=== PATIENT | female | born 1990 | race Caucasian/White ===

== ENCOUNTER 2018-11-09 11:33 | Emergency (ER) | payer OTHER ==
[~2018-11-09] VITALS: Ht 170.2 cm; Wt 101.6 kg
[~2018-11-09 11:33] MED LIST: AMOXICILLIN875 MG PO; NORCO 5-325 TA1 EACH PO; PRENATAL 19 CH1 EAC1 PO; TYLENOL325 MG PO
[2018-11-09] MEDS ORDERED: PROPRANOLOL HCL40 MG PO (12:03)
[2018-11-09] MEDS ORDERED: RIZATRIPTAN5 MG PO (12:03)
[2018-11-09] MEDS ORDERED: INDOMETHACIN50 MG PO (13:47)
[2018-11-09] MEDS ORDERED: NORCO 5-325 TA1 EACH PO (13:47)
[2018-11-09] MEDS ORDERED: FLOMAX0.4 MG PO (13:47)
== END 2018-11-09 13:54 | disposition home or self-care (01) ==
LOC: ED 11:33
DX: R30.0 Dysuria (principal); Z87.442 Personal history of urinary calculi; Z88.5 Allergy status to narcotic agent; Z79.899 Other long term (current) drug therapy
CPT/HCPCS: 74176; 80053; 81001; 85025; 96374; 96375; 99284-25; J1885; J2550

== ENCOUNTER 2020-03-01 04:33 | Emergency (ER) | payer OTHER ==
[~2020-03-01] VITALS: Ht 170.2 cm; Wt 101.6 kg
[~2020-03-01 04:33] MED LIST changes: +FLOMAX0.4 MG PO; +INDOMETHACIN50 MG PO; +PROPRANOLOL HCL40 MG PO; +RIZATRIPTAN5 MG PO
--- OUTSIDE RECORDS SUMMARY | 2020-03-01 04:36 | XMS ---
PreManage Notification: BOWEN REGALADO Security Pot Puller Events No recent Security Events currently on file CRITERIA MET - PDMP CARE PROVIDERS JAYCE TOLENTINO Nurse Practitioner: Family Current PHONE: [phone] Neeraj has no Care Guidelines for this patient. E.Stephania VISIT COUNT (12 MO.) [address] [facility] TOTAL 4 NOTE: Visits indicate total known visits. ED/UCC VISIT TRACKING (12 MO.) 03/01/2020 04:33 MARLI Montoya OR TYPE: Emergency COMPLAINT: - ABDOMINAL PAIN 06/02/2019 04:30 [facility] TYPE: Emergency DIAGNOSES: - Flank Pain; - Tubulo-interstitial nephritis, not specified as acute or investigator utility bill complaints - Flank Pain 05/18/2019 13:44 [facility] TYPE: Emergency DIAGNOSES: - Migraine, unspecified, not intractable, without status migrai - Headache (Adult - Recurrent Or Known Dx Migraines) - Migraine - Cough 04/15/2019 21:08 Herb Quiroz [facility] TYPE: Emergency DIAGNOSES: - Headache (Adult - Recurrent Or Known Dx Migraines) - Migraine, unspecified, not intractable, without status migrai - Migraine INPATIENT VISIT TRACKING (12 MO.) No inpatient visits to display in this time frame [email or web address]
== END 2020-03-01 07:10 | disposition home or self-care (01) ==
LOC: ED 04:33
DX: R07.9 Chest pain, unspecified (principal); F41.9 Anxiety disorder, unspecified; F32.9 Major depressive disorder, single episode, unspecified; G43.909 Migraine, unspecified, not intractable, without status migrainosus; F17.200 Nicotine dependence, unspecified, uncomplicated; Z88.0 Allergy status to penicillin; Z88.5 Allergy status to narcotic agent; Z79.899 Other long term (current) drug therapy
CPT/HCPCS: 71045; 76705; 80053; 81001; 83690; 84484; 84703; 85025; 85379; 96374; 99285-25; J1885

== ENCOUNTER 2020-06-27 18:26 | Emergency (ER) | payer OTHER ==
[~2020-06-27] VITALS: Ht 170.2 cm; Wt 101.6 kg
[2020-06-27] MEDS ORDERED: NITROFURANTOIN100 M1 PO (18:41)
== END 2020-06-27 21:06 | disposition home or self-care (01) ==
LOC: ED 18:26
DX: O9A.212 Injury, poisoning and certain other consequences of external causes complicating pregnancy, second trimester (principal); S39.011A Strain of muscle, fascia and tendon of abdomen, initial encounter; O99.342 Other mental disorders complicating pregnancy, second trimester; F41.9 Anxiety disorder, unspecified; F32.9 Major depressive disorder, single episode, unspecified; O99.352 Diseases of the nervous system complicating pregnancy, second trimester; G43.909 Migraine, unspecified, not intractable, without status migrainosus; Z87.891 Personal history of nicotine dependence; Z88.0 Allergy status to penicillin; Z88.5 Allergy status to narcotic agent; Z79.899 Other long term (current) drug therapy; Z3A.14 14 weeks gestation of pregnancy
CPT/HCPCS: 76815; 99284-25

== ENCOUNTER 2020-11-30 08:58 | Observation (INO) | payer OTHER ==
[~2020-11-30] VITALS: Ht 170.2 cm; Wt 120.0 kg
[~2020-11-30 08:58] MED LIST changes: +NITROFURANTOIN100 M1 PO
--- NOTE | 2020-11-30 14:06 | NUR ---
RT COLLECTED COVID 19 SWAB WITH NO COMPLICATIONS. RT USED THE CEPHEID RAPID TEST THROUGH [facility] PER DR REQUEST AT THIS TIME.
--- NOTE | 2020-11-30 21:11 | CONS ---
[facility] [address] [place], [place] [address] Signed DATE OF CONSULTATION: CONSULTING PHYSICIAN: Se Guerrero MD REQUESTING PHYSICIAN: Aric Smith MD PROBLEM: Acute calculous cholecystitis, 37 weeks gestation. HISTORY OF PRESENT ILLNESS: This 30-year-old white woman has had 5 pregnancies in the past, none of which have been complicated in any way. Since (today is Saturday), she has had some right-sided abdominal and right subscapular pain. This has not been associated with protracted nausea or vomiting. She presented to the emergency room June 27, was evaluated by Dr. Horta. She was subsequently seen by Dr. Smith in his office yesterday and considered likely to have acute cholecystitis and underwent gallbladder ultrasound on November 30, 2020 this morning at 9:30, which confirmed mild thickening of the gallbladder wall, a single gallstone, and some adherent cholesterol deposits of the gallbladder. There was no sign of pericholecystic fluid, emphysematous cholecystitis, or other problem. The patient was directly admitted to the [facility] by Dr. Smith and consultations undertaken. The patient is eligible for delivery of the child at any time as it has reached maturity at 37 weeks, adequate enough for safe delivery with induction if necessary. PAST MEDICAL HISTORY: Does include multiple childbirths in the past. She denies prior ongoing severe medical problems other than obesity. LABORATORY DATA: Evaluation this morning include a white count of 9.3 with hematocrit of 32.4, platelets 282,000. Chem profile is normal except for potassium of 3.3, AST 54, normal bilirubin of 0.9, ALT of 73, alkaline phosphatase elevated at 143. Amylase and lipase were normal. REVIEW OF SYSTEMS: She denies any nausea or vomiting. Her pain is mostly in the right lateral abdominal wall and in the right subscapular area. SOCIAL HISTORY: Electronically Signed By: SE GUERRERO MD 11/30/20 2111 PATIENT NAME: BOWEN REGALADO CONSULTATION DATE OF : 86 REPORT #: [id number] PHYSICIAN: SE GUERRERO MD PCP: NO PRIMARY CARE PHYSICIAN REPORT IS CONFIDENTIAL AND NOT TO BE RELEASED WITHOUT AUTHORIZATION [address] [address] Signed She has several children already and her accompanies her currently. She lives in [place]. PHYSICAL EXAMINATION: GENERAL: A pleasant, but obese white woman, who does not look systemically toxic. There is no icterus of the sclera. Trachea is midline. CHEST: Shows normal respiratory excursion. She has no tachypnea. HEART: Regular at approximately 85 beats per minute. A monitor shows normal heart tones. ABDOMEN: Shows an enlargement related to intrauterine gestation midway between xiphoid and umbilicus. She has no focal tenderness on exam. Mild tenderness to deep palpation. There is no obvious ascites. EXTREMITIES: Show no clubbing, cyanosis, or edema. SKIN: Shows multiple tattoos. LABORATORY STUDIES: As described. ASSESSMENT: The patient has acute calculous cholecystitis from a clinical basis and ultrasound does show mild thickening of the gallbladder wall and a single gallstone. There does not appear to be adverse findings of emphysematous cholecystitis or anything of that sort. I have reviewed this situation with Dr. Smith. The patient can be induced for labor and have subsequent cholecystectomy if necessary, though maturation for another week would be preferable if possible. The cholecystitis is yet to be treated medically and I would recommend antibiotic be given. Recommended Ancef 2 g IV q.8 hours; the patient does have allergy to penicillin (chest tightness) and Dr. Smith prefers in her situation clindamycin. 600 mg IV q.8 hours is anticipated on that basis. We will continue to observe the patient. If antibiotic therapy and medical measures are adequate to settle her acute episode, then cholecystectomy could be promptly performed after elective delivery within the next week or 2. If she has progression of her symptoms, worsening or toxicity in any way, then induction of delivery and subsequent cholecystectomy could certainly be performed. We would not recommend concurrent cholecystectomy to her without delivery under the circumstances as precipitation of labor would be extremely probable. Se Guerrero MD Electronically Signed By: SE GUERRERO MD 11/30/202110 PATIENT NAME: BOWEN REGALADO CONSULTATION DATE OF : 86 REPORT #: [id number] PHYSICIAN: SE GUERRERO MD PCP: NO PRIMARY CARE PHYSICIAN REPORT IS CONFIDENTIAL AND NOT TO BE RELEASED WITHOUT AUTHORIZATION [facility] [address] [place] [id number] Signed /[facility] /[id number] cc: Aric Smith MD Copies: ARIC SMITH MD ~ Electronically Signed By: SE GUERRERO MD 11/30/20 2111 PATIENT NAME: BOWEN REGALADO CONSULTATION DATE OF : 86 REPORT #: [id number] PHYSICIAN: SE GUERRERO MD PCP: NO PRIMARY CARE PHYSICIAN REPORT IS CONFIDENTIAL AND NOT TO BE RELEASED WITHOUT AUTHORIZATION
--- NOTE | 2020-12-01 15:10 | NUR ---
PT AMBULATES INTO ROOM [address] [facility] WITH SPOUSE AND FB NURSE AT HER SIDE. PT IS ALERT AND ORIENTED X4, DENIES PAIN, NAUSEA, AND SOB. PT IS WELL ABLE TO INTO BED WITHOUT ASSISTANCE. BOTH PT AND HER SPOUSE ARE COOPERATIVE AND POLITE. ADDITIONAL BEDSIDE REPORT GIVEN BY MARTHA FB RN. PT SETTELED INTO BED, SCD'S IN PLACE.
--- NOTE | 2020-12-01 15:24 | NUR ---
ALL PT VITALS ARE WNL AT THIS TIME. PT C/O SLIGHT PAIN/DISCOMFORT AT IV SITE DURING POTASSIUM INFUSION. RATE OF POTASSIUM SLOWED FROM 131 ML/HR TO 100 ML/HR. WARM PACK APPLIED TO TENDER AREA BY IV SITE.
--- NOTE | 2020-12-01 16:20 | NUR ---
PT UP AND AMBLUATES EASILY TO THE BATHROOM TO VOID. THEN BACK TO BED INDEPENDENTLY. PT DENIES PAIN, NAUSEA, AND SOB AT THIS TIME.
--- NOTE | 2020-12-01 17:25 | NUR ---
NOHEMY KRAMER WENT INTO PT ROOM TO OBTAIN PT DINNER ORDER.
--- NOTE | 2020-12-01 19:41 | NUR ---
SHIFT REPORT RECEIVED FROM CHRISTINE BORREGO. ASSESSMENT COMPLETED AT THIS TIME. PT FINISHED WITH DINNER AND HAS BEEN UP TO BATHROOM TO VOID. SHE DENIES PAIN AND NAUSEA AT THIS TIME. IV SITE INTACT, INFUSING WNL. PT ON TELE #4 DURING POTASSIUM IV INFUSION, SINUS RHYTHM. GENERALIZED EDEMA TO BLE. REMAINDER OF ASSESSMENT IS BENIGN. PT DENIES NEEDS AT THIS TIME, IS AT BEDSIDE. CALL LIGHT WITHIN REACH. PLAN OF CARE DISCUSSED, QUESTIONS ANSWERED.
--- NOTE | 2020-12-01 20:48 | NUR ---
PT CALLED DUE TO IV PUMP ALARMING. NEW BAG OF IV FLUIDS STARTED. PT DENIES COMPLAINTS OR REQUESTS.
--- NOTE | 2020-12-01 21:42 | NUR ---
FBC RN, OLIVER IN ROOM FOR NST AT THIS TIME.
--- NOTE | 2020-12-01 22:31 | NUR ---
IN TO START ANTIBIOTIC INFUSION, PT ALSO REPORTS NAUSEA. PRN PHENERGAN GIVEN AT THIS TIME. PT DENIES FURTHER REQUESTS OR COMPLAINTS.
--- NOTE | 2020-12-01 23:40 | NUR ---
PT CALLED TO REPORT ITCHING TO ARMS AND LEGS. NO RASH NOTED AT THIS TIME. DR. RAHMAN CALLED AND ORDER RECEIVED FOR PRN BENADRYL, GIVEN AT THIS TIME.
--- NOTE | 2020-12-02 00:27 | NUR ---
LABORATORY SCIENTIST IN TO DRAW BLOOD FOR MIDNIGHT LABS. ASSESSMENT COMPLETED AND UNCHANGED. VITAL SIGNS STABLE. PT REPORTS NAUSEA HAS RESOLVED SINCE PRN PHENERGAN AND THAT HER ITCHING IS BETTER SINCE RECEIVING BENADRYL. PT DENIES COMPLAINTS OR REQUESTS. CALL LIGHT WITHIN REACH.
--- NOTE | 2020-12-02 03:51 | NUR ---
PT APPEARS TO BE SLEEPING AT THIS TIME, NO APPARENT DISTRESS. RESPIRATIONS EVEN AND UNLABORED. HR:88 PER TELE #4.
--- NOTE | 2020-12-02 05:48 | NUR ---
IV PUMP ALARMING, NEW BAG OF IV FLUIDS AND SCHEDULED ANTIBIOTIC INFUSION STARTED. ASSESSMENT COMPLETED. PT REPORTS NAUSEA, PRN REGLAN GIVEN. PT CURRENTLY SLEEPING ON COUCH, STATED THAT SHE COULDN'T GET COMFORTABLE IN THE BED. REMAINDER OF ASSESSMENT UNCHANGED. VITAL SIGNS STABLE. PT DENIES NEEDS, CALL LIGHT WITHIN REACH.
[2020-12-02] MEDS ORDERED: CLEOCIN HCL300 MG PO (07:36)
[2020-12-02] MEDS ORDERED: PROMETHAZINE HC25 M1 PO (07:37)
--- NOTE | 2020-12-02 09:20 | NUR ---
PT LEFT CCU VIA WHEELCHAIR WITH LEBRON KING FOR TRANSPORTER AND WITH SPOUSE AT HER SIDE. PT REMAINS ALERT AND ORIENTED X4, DENIES PAIN, NAUSEA, AND SOB. PT INDEPENDENT WITH SELF CARES.
== END 2020-12-02 09:25 | disposition home or self-care (01) ==
LOC: US 08:58 → FBCO 08:58 → US 09:00 → FBC 10:40 → CCU 12-01 14:58
PROVIDERS: ADMIT General Practice; ATTEND General Practice
DX: O99.613 Diseases of the digestive system complicating pregnancy, third trimester (principal); O21.9 Vomiting of pregnancy, unspecified; Z88.5 Allergy status to narcotic agent; Z88.0 Allergy status to penicillin; Z3A.37 37 weeks gestation of pregnancy; Z20.822 Contact with and (suspected) exposure to COVID-19
CPT/HCPCS: 36415; 76705; 80053; 82150; 82247; 82465; 83615; 83690; 84100; 84478; 84550; 85025; C9803; J2550; J3475; J3480; J7060; J7121; U0003

== ENCOUNTER 2020-12-08 00:03 | Inpatient (IN) | payer OTHER ==
[~2020-12-08] VITALS: Ht 170.2 cm; Wt 110.7 kg
[~2020-12-08 00:03] MED LIST changes: +CLEOCIN HCL300 MG PO; +PROMETHAZINE HC25 M1 PO
--- NOTE | 2020-12-09 11:16 | PR ---
[facility] [address] [place] [address] Signed PP Progress Notes Datetime Report Generated by CPN: 12/09/2020 11:16 SUBJECTIVE: [id number] Pain: Within Normal Limits Nausea/Vomiting: Denies Vital Signs: [id number] Vital Signs: Reviewed; Within Normal Limits Notable Details: PP Hgb/Hct = 9.6/28.7 EXAM: Ongoing Abdomen/Uterus: Normal Lochia: Normal Extremities: Normal IMPRESSION/PLAN/PROCEDURES: [id number] Impression: Normal Progression Plan: Discharge Procedures: None Progress Notes: Doing well, without complaint, would like to go home today. Signing Physician: Juana Rahman MD Copies: ~ *Electronically Signed* 12/09/20 1116 JUANA RAHMAN MD PATIENT NAME: BOWEN REGALADO PROGRESS NOTE DATE OF : 86 PHYSICIAN: JUANA RAHMAN MD RPT #: [id number] REPORT IS CONFIDENTIAL AND NOT TO BE RELEASED WITHOUT AUTHORIZATION
== END 2020-12-09 13:00 | disposition home or self-care (01) | DRG 806 ==
LOC: FBC 00:03
PROVIDERS: ADMIT General Practice; ATTEND General Practice
PROC: 10E0XZZ Delivery of Products of Conception, External Approach (ICD-10-PCS; principal; 2020-12-08)
PROC: 0UQMXZZ Repair Vulva, External Approach (ICD-10-PCS; 2020-12-08)
PROC: 3E0P7VZ Introduction of Hormone into Female Reproductive, Via Natural or Artificial Opening (ICD-10-PCS; 2020-12-08)
DX: O99.62 Diseases of the digestive system complicating childbirth (principal); K81.0 Acute cholecystitis; Z37.0 Single live birth; O62.3 Precipitate labor; O99.324 Drug use complicating childbirth; O99.354 Diseases of the nervous system complicating childbirth; Z3A.38 38 weeks gestation of pregnancy; O99.344 Other mental disorders complicating childbirth; F41.9 Anxiety disorder, unspecified; O99.02 Anemia complicating childbirth; D64.9 Anemia, unspecified; O77.0 Labor and delivery complicated by meconium in amniotic fluid; O71.82 Other specified trauma to perineum and vulva; G43.909 Migraine, unspecified, not intractable, without status migrainosus; F12.90 Cannabis use, unspecified, uncomplicated; O99.334 Smoking (tobacco) complicating childbirth; F17.210 Nicotine dependence, cigarettes, uncomplicated; Z88.0 Allergy status to penicillin; Z88.5 Allergy status to narcotic agent; Z79.899 Other long term (current) drug therapy; Z87.440 Personal history of urinary (tract) infections
CPT/HCPCS: 36415; 85027; A9270; J2590

== ENCOUNTER 2020-12-30 07:30 | Day surgery (SDC) | payer OTHER ==
[~2020-12-30] VITALS: Ht 170.2 cm; Wt 101.3 kg
[~2020-12-30 07:30] MED LIST changes: +PROPRANOLOL HCL20 MG PO
[2020-12-30] MEDS ORDERED: IRON18 MG PO (07:48)
[2020-12-30] MEDS ORDERED: IBUPROFEN800 MG PO (07:48)
[2020-12-30] MEDS ORDERED: FENUGREEK500 MG PO (07:49)
[2020-12-30] MEDS ORDERED: PRENATA CHEWAB1 EACH PO (07:49)
[2020-12-30] MEDS ORDERED: OXYCODON-ACETA1 EAC2 PO (13:32)
[2020-12-30] MEDS ORDERED: IBUPROFEN600 MG PO (13:32)
[2020-12-30] MEDS ORDERED: ACETAMINOPHEN500 MG PO (13:33)
--- NOTE | 2021-01-01 12:21 | OR ---
[facility] [address] [place], [place] [address] Signed DATE OF OPERATION: 12/30/2020 SURGEON: Se Guerrero MD PREOPERATIVE DIAGNOSES: 1. History of acute calculous cholecystitis at 36 weeks gestation, managed nonoperatively at that time. 2. Ongoing symptoms of right subcostal pain. 3. Chronic cholecystitis. POSTOPERATIVE DIAGNOSES: 1. Chronic and acute calculous cholecystitis. 2. state 14 days. PROCEDURES: 1. Laparoscopic cholecystectomy with intraoperative cholangiogram (prolonged, complicated and difficult). 2. Surgeon-directed fluoroscopy. ANESTHESIA: General endotracheal, Se Tavera CRNA and local 10 mL of 0.25% Marcaine with epinephrine. INDICATION: This 30-year-old dark-skinned woman is now 14 days , having delivered a healthy on about December 08, 2020. She had been noted to have acute calculous cholecystitis in her 36 weeks of gestation. She was admitted by Dr. Smith and was managed nonoperatively at that time with antibiotics alone and able to be discharged and ultimately delivering her child without need for operation axel without problem. Though she was much improved having undergone antibiotic therapy, she has remained with episodes of right subcostal pain highly consistent with chronic cholecystitis and known to have gallstones. She is admitted at this time to undergo cholecystectomy. She understands the risks of bleeding, infection, bile duct injury, need for open procedure and other unforeseen complications. FINDINGS: The gallbladder was tense and distended and subacutely inflamed as well as chronically inflamed. Decompression of the gallbladder was undertaken showing only faint green fluid. Cholecystectomy was performed, but it was quite challenging based on her inflammation and so forth. Cholangiogram was normal. There was a difficult plane in Electronically Signed By: SE GUERRERO MD 01/01/21 1221 PATIENT NAME: BOWEN REGALADO OPERATIVE REPORT DATE OF : 86 REPORT #: [id number] PHYSICIAN: SE GUERRERO MD PCP: NO PRIMARY CARE PHYSICIAN REPORT IS CONFIDENTIAL AND NOT TO BE RELEASED WITHOUT AUTHORIZATION [facility] [address] [place], [place] [address] Signed dissecting the gallbladder from the liver bed and therefore some oozing of blood, more so than usual for certain. By conclusion, good hemostasis was noted with combination of techniques including Tisseel (fibrin glue). A drain was placed. At conclusion, the drain showed only faint pink fluid and no sign of ongoing bleeding. DESCRIPTION OF PROCEDURE: The patient was brought to the operating room, given a general endotracheal anesthetic. Preoperative antibiotics were given. Sequential compression device stockings were used and heparin subcutaneously administered. The abdomen was prepared with a chlorhexidine solution and draped sterilely. An infraumbilical incision was made and using an open Ching cannula technique, the abdomen was entered and pneumoperitoneum was achieved to a level of 14 mmHg. This was with carbon dioxide gas. The patient had abdominal obesity, but there was no evidence of fatty infiltration of the liver itself. Three additional trocars were placed in usual configuration in the subxiphoid, right midclavicular, and right anterior axilla line. The gallbladder was unable to be grasped. It was tensely distended and chronically and subacutely inflamed. Decompression with a trocar was undertaken showing faint light green fluid. Once decompressed, the gallbladder could be grasped easily and elevated cephalad. Retraction laterally in the infundibulum was undertaken using blunt electrocautery dissection. The triangle of Calot was dissected free. This took a considerable amount of time and effort due to the inflammatory changes in the region of the infundibulum and cystic duct. The common duct was well visualized during the course of the dissection and was unharmed. The cystic duct was a bit on the larger side than usual but not excessively so. A clip was applied across the gallbladder cystic duct junction after application of few hemoclips in the same region for small blood vessels. A transverse choledochotomy was made in the cystic duct allowing for egress of clear yellow bile. There were no stones noted. Using the Marie type cholangiocatheter, intraoperative cholangiography was undertaken showing free flow of contrast in the biliary tree with prompt emptying into the duodenum. There was no evidence of biliary anomaly. The cystic duct was in reasonable position and of moderate length. The cystic duct was triply clipped and divided and the gallbladder was dissected free in a retrograde fashion. A firm fibrotic posterior wall was noted, although there were places where the plane could be maintained between the gallbladder and the liver. Other places were densely adherent and unable to be so easily dissected. Clips were required in some of the hepatic parenchyma upon the dissection. Ultimately, the gallbladder was completely excised, placed in an endobag, although spillage of bilious fluid and so forth was noted. Irrigation was undertaken. Excess bilious fluid was suctioned free. The gallbladder was extracted through the infraumbilical port site with the endobag opened on the back table and found to have a pink faint whitish appearance and at least three 6 mm gallstones that were green and Electronically Signed By: SE GUERRERO MD 01/01/21 1221 PATIENT NAME: BOWEN REGALADO OPERATIVE REPORT DATE OF : 86 REPORT #: [id number] PHYSICIAN: SE GUERRERO MD PCP: NO PRIMARY CARE PHYSICIAN REPORT IS CONFIDENTIAL AND NOT TO BE RELEASED WITHOUT AUTHORIZATION [facility] [address] [place], [place] [address] Signed oval in shape. There was no sign of neoplasm. Irrigation was undertaken of the wood hepatis. There was oozing from the area of raw liver parenchyma and clips were applied as necessary as well as cautery. The bulk of bleeding was related to this phenomenon. Tisseel (fibrin glue) was applied twice to the liver bed providing good hemostatic benefit. The omentum was placed into the subhepatic space. Excess irrigation fluid and clot were suctioned free. Although hemostasis was assured, a 7 mm flat Steven drain was placed just beneath the liver edge outside of the area of recent dissection. It drained only faint fluid. The trocars were removed under direct visualization showing no sign of bleeding. The infraumbilical fascial incision was reapproximated with interrupted 0 Vicryl suture as well as a running 0 PDS suture. A 10 mL of 0.25% Marcaine was injected locally. The skin closed with interrupted 3-0 Vicryl and Steri-Strips were applied. The patient was ultimately extubated, transferred to the recovery room in good condition having suffered no complications. Sponge, needle, and instrument counts were reported as correct x3. The operation was rather prolonged, complicated, and difficult on the basis of her acute and chronic inflammation, lasting four times longer than the usual. MD ASIF Abel/RISA /[id number] cc: Aric Smith MD Copies: ARIC SMITH MD ~ Electronically Signed By: SE GUERRERO MD 01/01/21 1221 PATIENT NAME: BOWEN REGALADO OPERATIVE REPORT DATE OF : 86 REPORT #: [id number] PHYSICIAN: SE GUERRERO MD PCP: NO PRIMARY CARE PHYSICIAN REPORT IS CONFIDENTIAL AND NOT TO BE RELEASED WITHOUT AUTHORIZATION
--- NOTE | 2021-01-04 16:18 | PATH ---
[facility] [address] [place], [place] [address] Signed SPECIMEN(S): A GALLBLADDER AND STONES SPECIMEN SOURCE: A. GALLBLADDER AND STONES CLINICAL HISTORY: Laparoscopic cholecystectomy with IOC. Acute calculous cholecystitis. FINAL PATHOLOGIC DIAGNOSIS: Gallbladder, cholecystectomy: - Acute on chronic cholecystitis with cholesterolosis. - Cholelithiasis. NAL:cml:C2NR MICROSCOPIC EXAMINATION: Histologic sections of all submitted blocks are examined by light microscopy. These findings, together with the gross examination, support the pathologic diagnosis. GROSS DESCRIPTION: The specimen, labeled "HS," and designated on the requisition "gallbladder with stones," is received in formalin and consists of Specimen: Previously opened gallbladder. Dimensions: 11.7 x 4.5 x 2.5 cm. Serosa: [place]-espinal to congested and smooth to slightly roughened. Cystic Duct: Inked black, shaved, obstruction of cystic duct cannot be determined. Calculi: Three green, bosselated calculi (1.9 x 1.8 x 1.0 cm in aggregate). Mucosa: [place]-espinal to hemorrhagic. Wall thickness: 0.4 cm. Lymph node: No pericystic lymph nodes are grossly identified. Additional: None. Fork Operator sections are submitted in cassette (A1). AC (under the direct supervision of a pathologist) Following initial examination of HE slides, Dr. Gonzalez requests additional sections. A2-A3 gallbladder wall AT 01/03/21 The Gross Description was prepared using a voice recognition system. The report was reviewed for accuracy; however, sound-alike word errors, addition and/or PATIENT NAME: BOWEN REGALADO PATHOLOGY DATE OF : 86 REPORT #: [id number] PHYSICIAN: ANNIE PATHOLOGY PCP: NO PRIMARY CARE PHYSICIAN REPORT IS CONFIDENTIAL AND NOT TO BE RELEASED WITHOUT AUTHORIZATION [facility] [address] [place] [id number] Signed deletions may occur. If there is any question about this report, please contact Client Services. PERFORMING LABORATORY: The technical component was performed [place] [address] (Reprint Sorter: María Jackson MD; CLIA# [id number]). Professional interpretation was performed by [facility], [address] [place] [address] (CLIA# [id number]). Diagnostician: Echo Gonzalez MD Pathologist Electronically Signed 01/04/2021 Copies: ~ PATIENT NAME: BOWEN REGALADO PATHOLOGY DATE OF : 86 REPORT #: [id number] PHYSICIAN: ANNIE PATHOLOGY PCP: NO PRIMARY CARE PHYSICIAN REPORT IS CONFIDENTIAL AND NOT TO BE RELEASED WITHOUT AUTHORIZATION
== END 2020-12-30 15:50 | disposition home or self-care (01) ==
LOC: DS 07:30
PROVIDERS: ATTEND Surgery
PROC: BF10YZZ Fluoroscopy of Bile Ducts using Other Contrast (ICD-10-PCS; 2020-12-30)
PROC: 0FT44ZZ Resection of Gallbladder, Percutaneous Endoscopic Approach (ICD-10-PCS; principal; 2020-12-30 08:45)
DX: O99.63 Diseases of the digestive system complicating the puerperium (principal); K80.12 Calculus of gallbladder with acute and chronic cholecystitis without obstruction; E66.01 Morbid (severe) obesity due to excess calories; Z68.36 Body mass index [BMI] 36.0-36.9, adult; Z88.5 Allergy status to narcotic agent; Z88.0 Allergy status to penicillin; Z87.891 Personal history of nicotine dependence; Z87.442 Personal history of urinary calculi
CPT/HCPCS: 00790; 36415; 74300; 85025; A9270; J0330; J1100; J1644; J1885; J2250; J2405; J2704; J2765; J3010; J7121; Q9967

== ENCOUNTER 2021-01-10 05:25 | Emergency (ER) | payer OTHER ==
[~2021-01-10] VITALS: Ht 170.2 cm; Wt 100.0 kg
[~2021-01-10 05:25] MED LIST changes: +ACETAMINOPHEN500 MG PO; +FENUGREEK500 MG PO; +IBUPROFEN600 MG PO; +IBUPROFEN800 MG PO; +IRON18 MG PO; +OXYCODON-ACETA1 EAC2 PO; +PRENATA CHEWAB1 EACH PO
== END 2021-01-10 07:08 | disposition home or self-care (01) ==
LOC: ED 05:25
DX: O99.893 Other specified diseases and conditions complicating puerperium (principal); S46.911A Strain of unspecified muscle, fascia and tendon at shoulder and upper arm level, right arm, initial encounter; X58.XXXA Exposure to other specified factors, initial encounter; G43.909 Migraine, unspecified, not intractable, without status migrainosus; F17.200 Nicotine dependence, unspecified, uncomplicated; Z88.0 Allergy status to penicillin; Z88.5 Allergy status to narcotic agent; Z79.899 Other long term (current) drug therapy
CPT/HCPCS: 73030; 80053; 99283-25

== ENCOUNTER 2024-10-06 11:03 | Emergency (ER) | payer OTHER ==
[~2024-10-06] VITALS: Ht 170.2 cm; Wt 91.6 kg
--- OUTSIDE RECORDS SUMMARY | 2024-10-06 11:07 | XMS ---
PreManage Notification: BOWEN REGALADO Security Silk Conditioner Events No recent Security Events currently on file CRITERIA MET - Group Notification CARE PROVIDERS -, [facility] Dentist: Baby Stroller Rental Clerk Current [facility] PHONE: [phone] -[facility]- Dentist: Baby Stroller Rental Clerk Current [facility] PHONE: [phone] [facility] PRIMARY Clinic/Center: [facility] PHONE: [phone] MATT ALFARO [facility] Current PHONE: [phone] Neeraj has no Care Guidelines for this patient. Juarez VISIT COUNT (12 MO.) 1 MARLI Garcia TOTAL 1 NOTE: Visits indicate total known visits. ED/UCC VISIT TRACKING (12 MO.) 10/06/2024 11:04 MARLI Montoya OR TYPE: Emergency COMPLAINT: - DOG BITE INPATIENT VISIT TRACKING (12 MO.) No inpatient visits to display in this time frame [email or web address]
[2024-10-06] MEDS ORDERED: clindamycin HCL 300 MG CAP PO ONE (12:15)
[2024-10-06] MEDS ORDERED: TRIMETHOPRIM/SULFAMETHOXAZOLE 1 EA TAB PO ONE (12:15)
[2024-10-06] MEDS ORDERED: IBUPROFEN 600 MG TAB PO ONE (12:30)
[2024-10-06] MEDS ORDERED: BACTRIM DS TAB1 EACH PO (13:16)
[2024-10-06] MEDS ORDERED: CLEOCIN HCL300 MG PO (13:16)
[2024-10-06 13:42] VITALS: BP 117/73
== END 2024-10-06 13:42 | disposition home or self-care (01) ==
LOC: ED 11:03
DX: S61.451A Open bite of right hand, initial encounter (principal); G43.909 Migraine, unspecified, not intractable, without status migrainosus; F17.200 Nicotine dependence, unspecified, uncomplicated; Z88.0 Allergy status to penicillin; Z88.5 Allergy status to narcotic agent; Z79.899 Other long term (current) drug therapy; W54.0XXA Bitten by dog, initial encounter
CPT/HCPCS: 73130; 99283; A9270